=== PATIENT | male | born 1970 | race Two or more races ===

== ENCOUNTER → 2021-09-19 08:00 | Outpatient (CLI) | payer OTHER ==
[~2021-09-19 08:00] MED LIST: ATACAND HCT 321 EAC1 PO; CRESTOR10 MG PO; SYNTHROID88 MCG PO
== END | disposition home or self-care (01) ==
LOC: LAB 08:00 → ADM 10:45 → CIR.AMB 09-25 07:00 → EDSTATUS 09-25 10:45
PROVIDERS: ATTEND Colon & Rectal Surgery
DX: U07.1 COVID-19 (principal); K60.1 Chronic anal fissure; K92.2 Gastrointestinal hemorrhage, unspecified

== ENCOUNTER 2021-12-25 06:00 | Day surgery (SDC) | payer OTHER | END 2021-12-25 18:30 | disposition home or self-care (01) | LOC: CIR.AMB 06:00 | PROVIDERS: ATTEND Colon & Rectal Surgery | DX: K60.1 Chronic anal fissure (principal); K92.2 Gastrointestinal hemorrhage, unspecified; Z20.822 Contact with and (suspected) exposure to COVID-19; I10 Essential (primary) hypertension; E03.9 Hypothyroidism, unspecified; K76.0 Fatty (change of) liver, not elsewhere classified ==